=== PATIENT | female | born 1980 | race Caucasian/White ===

== ENCOUNTER 2018-10-12 04:46 | Emergency (ER) | payer BC ==
[~2018-10-12] VITALS: Ht 167.6 cm; Wt 125.0 kg
[2018-10-12 07:40] LABS: BASO % 0.4 % (0.0-1.0); EOS # 0.3 10^3/uL (0.0-0.50); EOS % 3.5 % (0.0-3.0); HEMATOCRIT 41.7 % (36.0-47.0); HEMOGLOBIN 14.1 g/dl (12.0-15.5); LYMPH # 1.6 10^3/uL (1.5-4.5); LYMPH % 22.8 % (24.0-44.0); MEAN CORPUSCULAR HGB CONC 33.8 g/dl (32.0-36.5); MEAN CORPUSCULAR VOLUME 85.8 fl (80.0-96.0); MONO # 0.4 10^3/uL (0.0-0.8); NEUTROPHILS # 4.8 10^3/uL (1.8-7.7); NEUTROPHILS % 67.6 % (36.0-66.0); PLATELET COUNT, AUTOMATED 262 10^3/uL (150-450); RED BLOOD COUNT 4.86 10^6/uL (4.00-5.40); WHITE BLOOD COUNT 7.2 10^3/uL (4.0-10.0)
[2018-10-12 10:18] LABS: CHLAMYDIA DNA AMPLIFICATION NEGATIVE (NEGATIVE); GC DNA AMPLIFICATION NEGATIVE (NEGATIVE)
--- NOTE | 2018-10-12 10:25 | REP ---
REASON FOR INTERPRETATION OF THE EXAM: Sent to [employer], no response. EXAM DATE: 10/12/2018 at 7:46 a.m. REASON FOR EXAM: Vaginal spotting. Transvesical and transvaginal imaging was obtained. The uterus measures 8.3 x 5.9 x 6.4 cm. Within the uterus, there is an anechoic structure with increase echoes surrounding it consistent with a decidual reaction. The mean diameter is equal to a 6 week 2 day gestational age. There is no echogenic material seen within the gestational sac that would be considered consistent with a pole. There is a yolk sac present. Doppler shows no evidence of cardiac activity. Right ovary measures 4.8 x 2.3 x 2.5 cm and is within normal limits. Left ovary measures 3.3 x 1.6 x 2.2 cm and is within normal limits. IMPRESSION: Early OB ultrasound as described above. Followup is recommended. Electronically Signed by Roberto Trinh DO 10/12/2018 01:51 P
[2018-10-12 11:08] VITALS: BP 159/96
== END 2018-10-12 11:24 | disposition home or self-care (01) ==
LOC: M ED 04:46
DX: O20.0 Threatened abortion (principal); Z3A.01 Less than 8 weeks gestation of pregnancy

== ENCOUNTER → 2018-11-03 | Outpatient (CLI) | payer BC ==
[2018-11-03 12:05] LABS: BASO % 0.3 % (0.0-1.0); EOS # 0.2 10^3/uL (0.0-0.50); EOS % 1.8 % (0.0-3.0); HEMATOCRIT 43.1 % (36.0-47.0); HEMOGLOBIN 14.7 g/dl (12.0-15.5); LYMPH # 1.8 10^3/uL (1.5-4.5); LYMPH % 17.4 % (24.0-44.0); MEAN CORPUSCULAR HEMOGLOBIN 29.2 pg (27.0-33.0); MEAN CORPUSCULAR HGB CONC 34.1 g/dl (32.0-36.5); MEAN CORPUSCULAR VOLUME 85.5 fl (80.0-96.0); MONO # 0.6 10^3/uL (0.0-0.8); MONO % 6.1 % (0.0-5.0); NEUTROPHILS # 7.7 10^3/uL (1.8-7.7); NEUTROPHILS % 73.9 % (36.0-66.0); PLATELET COUNT, AUTOMATED 281 10^3/uL (150-450); RED BLOOD COUNT 5.04 10^6/uL (4.00-5.40); WHITE BLOOD COUNT 10.4 10^3/uL (4.0-10.0)
[2018-11-03 12:24] LABS: CREATININE,RANDOM URINE 93.4 MG/DL; TOTAL PROTEIN,RANDOM URINE 32.1 MG/DL (0.0-12.0)
[2018-11-03 12:29] LABS: ALT/SGPT 22 U/L (12-78); BILIRUBIN,TOTAL 0.2 MG/DL (0.2-1.0); CREATININE FOR GFR 0.56 MG/DL (0.55-1.30); GLOMERULAR FILTRATION RATE > 60.0 (>60); LDH LACTATE DEHYDROGENASE 171 U/L (84-246); URIC ACID 4.3 MG/DL (2.6-6.0)
[2018-11-03 12:43] LABS: RUBELLA IgG QUALITATIVE IMMUNE (IMMUNE)
[2018-11-03 13:12] LABS: HIV 1&2 SCREEN CENTAUR NEGATIVE (NEGATIVE)
[2018-11-03 13:20] LABS: CHLAMYDIA DNA AMPLIFICATION NEGATIVE (NEGATIVE); GC DNA AMPLIFICATION NEGATIVE (NEGATIVE)
== END ==
LOC: M LAB 10:24
PROVIDERS: ATTEND Obstetrics & Gynecology
DX: O99.211 Obesity complicating pregnancy, first trimester (principal); O16.1 Unspecified maternal hypertension, first trimester; Z3A.00 Weeks of gestation of pregnancy not specified

== ENCOUNTER → 2018-11-03 | Outpatient (CLI) | payer BC | LOC: M SMT 12:00 | PROVIDERS: ATTEND Advanced Practice Midwife | DX: O20.0 Threatened abortion (principal); Z3A.00 Weeks of gestation of pregnancy not specified ==

== ENCOUNTER → 2018-11-04 | Outpatient (CLI) | payer BC | LOC: M LAB 13:24 | PROVIDERS: ATTEND Advanced Practice Midwife | DX: O20.0 Threatened abortion (principal) ==

== ENCOUNTER → 2018-11-12 | Outpatient (CLI) | payer BC | LOC: M LAB 09:17 | PROVIDERS: ATTEND Obstetrics & Gynecology | DX: O03.9 Complete or unspecified spontaneous abortion without complication (principal); Z3A.00 Weeks of gestation of pregnancy not specified ==

== ENCOUNTER → 2019-05-13 | Outpatient (REF) | payer BC ==
[2019-05-13 17:42] LABS: HEMATOCRIT 42.4 % (36.0-47.0); HEMOGLOBIN 13.8 g/dl (12.0-15.5); MEAN CORPUSCULAR HEMOGLOBIN 28.7 pg (27.0-33.0); MEAN CORPUSCULAR HGB CONC 32.5 g/dl (32.0-36.5); MEAN CORPUSCULAR VOLUME 88.1 fl (80.0-96.0); PLATELET COUNT, AUTOMATED 303 10^3/uL (150-450); RED BLOOD COUNT 4.81 10^6/uL (4.00-5.40); WHITE BLOOD COUNT 9.5 10^3/uL (4.0-10.0)
[2019-05-13 18:31] LABS: HCG, SERUM QUANTITATIVE 1010 MIU/ML; RUBELLA IgG QUALITATIVE IMMUNE (IMMUNE)
[2019-05-13 18:39] LABS: HEMOGLOBIN A1c 6.4 %
[2019-05-13 18:42] LABS: HIV 1&2 SCREEN CENTAUR NEGATIVE (NEGATIVE)
[2019-05-15 13:07] LABS: HEPATITIS C VIRUS ABY INDEX 0.1 INDEX (<0.8)
== END ==
LOC: M LAB REF 16:44
PROVIDERS: ATTEND Nurse Practitioner Women's Health
DX: O36.80X0 Pregnancy with inconclusive fetal viability, not applicable or unspecified (principal)

== ENCOUNTER → 2019-05-18 | Outpatient (CLI) | payer BC | LOC: M LAB 07:34 | PROVIDERS: ATTEND Nurse Practitioner Women's Health | DX: O99.810 Abnormal glucose complicating pregnancy (principal) ==

== ENCOUNTER → 2019-08-26 | Outpatient (REF) | payer BC ==
[2019-08-26 16:56] LABS: FREE T3 2.5 PG/ML (2.2-4.0); FREE T4 0.92 NG/DL (0.76-1.46); THYROID STIMULATING HORMONE 3.91 uIU/ML (0.358-3.740)
== END ==
LOC: M LAB REF 16:17
PROVIDERS: ATTEND Obstetrics & Gynecology
DX: Z34.82 Encounter for supervision of other normal pregnancy, second trimester (principal)

== ENCOUNTER → 2019-09-30 | Outpatient (CLI) | payer BC ==
[2019-09-30 15:25] LABS: HEMATOCRIT 39.4 % (36.0-47.0); HEMOGLOBIN 13.5 g/dl (12.0-15.5); MEAN CORPUSCULAR HEMOGLOBIN 29.6 pg (27.0-33.0); MEAN CORPUSCULAR HGB CONC 34.3 g/dl (32.0-36.5); MEAN CORPUSCULAR VOLUME 86.4 fl (80.0-96.0); PLATELET COUNT, AUTOMATED 249 10^3/uL (150-450); RED BLOOD COUNT 4.56 10^6/uL (4.00-5.40); WHITE BLOOD COUNT 9.7 10^3/uL (4.0-10.0)
[2019-09-30 15:49] LABS: CREATININE, URINE 65.6 MG/DL
[2019-09-30 15:56] LABS: ALBUMIN 3.1 GM/DL (3.2-5.2); ALT/SGPT 13 U/L (12-78); BILIRUBIN,TOTAL 0.3 MG/DL (0.2-1.0); BLOOD UREA NITROGEN 7 MG/DL (7-18); CALCIUM LEVEL 8.8 MG/DL (8.5-10.1); CARBON DIOXIDE LEVEL 24 MEQ/L (21-32); CHLORIDE LEVEL 106 MEQ/L (98-107); GLOMERULAR FILTRATION RATE > 60.0 (>60); POTASSIUM SERUM 4.1 MEQ/L (3.5-5.1); SODIUM LEVEL 136 MEQ/L (136-145)
[2019-10-01 07:04] LABS: GLUCOSE, FASTING 68 MG/DL (70-100)
== END ==
LOC: M LAB 14:40
PROVIDERS: ATTEND Obstetrics & Gynecology
DX: Z34.81 Encounter for supervision of other normal pregnancy, first trimester (principal); Z3A.00 Weeks of gestation of pregnancy not specified

== ENCOUNTER → 2019-12-18 | Outpatient (CLI) | payer BC ==
[~2019-12-18] MED LIST: EUTH50TA PO; GLYB5TA PO; IBUP80TA PO; PERCOCET PO; PRENTAB55 PO
--- NOTE | 2019-12-18 11:52 | REP ---
OB ULTRASOUND: Real-time sonographic evaluation of gravid uterus performed. There is a single living intrauterine gestation. The estimated gestational age is reportedly 36 weeks 4 days, EDC 01/11/2020. Cervix is closed and measures 4 cm in length. heart rate 158 beats per minute. Amniotic fluid appears within normal limits. TASHIA is 10.1, normal range 8-18. position breech. Placenta is fundal and grade 2 with no previa or abruption.
== END ==
LOC: M WHC 07:19
PROVIDERS: ATTEND Advanced Practice Midwife
DX: O32.1XX0 Maternal care for breech presentation, not applicable or unspecified (principal); Z3A.36 36 weeks gestation of pregnancy

== ENCOUNTER → 2019-12-22 | Outpatient (REF) | payer BC | LOC: M LAB REF 16:12 | PROVIDERS: ATTEND Obstetrics & Gynecology | DX: Z34.83 Encounter for supervision of other normal pregnancy, third trimester (principal) ==

== ENCOUNTER → 2019-12-28 | Outpatient (CLI) | payer BC | LOC: M LABSMTC 10:44 | PROVIDERS: ATTEND Anesthesiology | DX: Z01.818 Encounter for other preprocedural examination (principal); Z11.59 Encounter for screening for other viral diseases | CPT/HCPCS: C9803; U0003 ==

== ENCOUNTER → 2019-12-30 | Outpatient (CLI) | payer BC ==
--- NOTE | 2019-12-31 06:11 | REP ---
REASON FOR EXAM: Followup. Multiple ultrasonographic images of the gravid uterus show a single living intrauterine gestation in the breech presentation. Doppler interrogation of the heart shows a heart rate of 130 beats per minute. The placenta is posterior and not low lying. The cervix measures 3.5 cm in length and is closed. The subjective amniotic fluid volume is within normal limits. The calculated amniotic fluid index is 10.4 with an expected range 7.3 to 23.5. No further imaging was requested or performed. IMPRESSION: Limited OB ultrasound exam, as described above.
== END ==
LOC: M WHC 15:14
PROVIDERS: ATTEND Obstetrics & Gynecology
DX: O32.1XX0 Maternal care for breech presentation, not applicable or unspecified (principal); Z3A.00 Weeks of gestation of pregnancy not specified

== ENCOUNTER 2019-12-31 05:08 | Inpatient (IN) | payer BC ==
[~2019-12-31] VITALS: Ht 167.6 cm; Wt 250.0 kg
[2019-12-31] VITALS (11 sets, daily range): BP systolic 120–153; BP diastolic 58–87
[~2019-12-31 05:08] MED LIST changes: -IBUP80TA PO; -PERCOCET PO
[2019-12-31] MEDS ORDERED: LACTATED RINGER'S 1000 ML IV STA (05:40)
[2019-12-31] MEDS ORDERED: LR 1,000 ML IV SCH ×2 (05:40→09:00)
[2019-12-31] MEDS ORDERED: ceFAZolin SOD 2 GM in IV 1 EA IV ONE (05:45)
[2019-12-31] MEDS ORDERED: BICITRA 30ML SOLN UDC PO ONE (05:45)
[2019-12-31 06:33] LABS: HEMATOCRIT 42.6 % (36.0-47.0); HEMOGLOBIN 14.2 g/dl (12.0-15.5); MEAN CORPUSCULAR HEMOGLOBIN 28.9 pg (27.0-33.0); MEAN CORPUSCULAR HGB CONC 33.3 g/dl (32.0-36.5); MEAN CORPUSCULAR VOLUME 86.8 fl (80.0-96.0); PLATELET COUNT, AUTOMATED 224 10^3/uL (150-450); RED BLOOD COUNT 4.91 10^6/uL (4.00-5.40); WHITE BLOOD COUNT 9.2 10^3/uL (4.0-10.0)
[2019-12-31 06:49] LABS: BLOOD UREA NITROGEN 12 MG/DL (7-18); CALCIUM LEVEL 8.4 MG/DL (8.5-10.1); CARBON DIOXIDE LEVEL 20 MEQ/L (21-32); CHLORIDE LEVEL 111 MEQ/L (98-107); CREATININE FOR GFR 0.52 MG/DL (0.55-1.30); GLOMERULAR FILTRATION RATE > 60.0 (>60); GLUCOSE, FASTING 90 MG/DL (70-100); SODIUM LEVEL 139 MEQ/L (136-145)
[2019-12-31] MEDS ORDERED: MORPHINE PRES-FREE INJ 10 MG/10 ML VIAL (J2274) As Ordered ONE (07:02)
[2019-12-31] MEDS ORDERED: OXYTOCIN 30 UNITS IN 0.9% NaCl 500ML IV BAG (J2590) As Ordered ONE ×2 (07:03→13:53)
[2019-12-31] MEDS ORDERED: OXYTOCIN INJ 10 UNITS/ML VIAL (J2590) As Ordered ONE (07:03)
[2019-12-31] MEDS ORDERED: PHENYLephrine HCL 500 MCG/5 ML (100MCG/ML) SYRINGE (J2370) As Ordered ONE (07:04)
[2019-12-31] MEDS ORDERED: KETOROLAC 60MG 2ML VIAL As Ordered ONE (07:04)
[2019-12-31] MEDS ORDERED: dexameTHASONE 4 MG/ML 1ML VIAL (J1100 PER 1MG) As Ordered ONE (07:04)
[2019-12-31] MEDS ORDERED: ePHEDrine SULFATE 25 MG/5 ML(5MG/ML) SYRINGE As Ordered ONE (07:04)
[2019-12-31] MEDS ORDERED: ONDANSETRON 4MG/2ML VIAL As Ordered ONE ×2 (07:04→10:16)
[2019-12-31] MEDS: glyBURIDE 2.5 MG TAB PO SCH ×2 (07:30→17:26)
[2019-12-31] MEDS ORDERED: OXYTOCIN DRIP 30 UNITS in IV 1 EA IV SCH (07:47)
[2019-12-31] MEDS ORDERED: NALOXONE INJ 0.4MG/1ML VIAL (J2310 PER 1MG) IV PRN ×2 (07:48)
[2019-12-31] MEDS ORDERED: NALBUPHINE HCL 10 MG/ML AMP (J2300) IV PRN (07:48)
[2019-12-31] MEDS ORDERED: METOCLOPRAMIDE INJ 10MG/2ML VIAL (J2765 PER 1) IV PRN (07:48)
[2019-12-31] MEDS ORDERED: diphenhydrAMINE 50MG/ML VIAL (J1200) IV PRN (07:48)
[2019-12-31] MEDS ORDERED: ONDANSETRON 4MG/2ML VIAL IV PRN ×2 (07:48→09:00)
[2019-12-31] MEDS ORDERED: MOM 30ML SUSPENSION UDC PO PRN (08:00)
[2019-12-31] MEDS ORDERED: RHOGAM 300 MCG (1500 IU) INJ (J2790) IM SCH (08:00)
[2019-12-31] MEDS ORDERED: MEASLES,MUMPS,RUBELLA VACCINE INJ (MMR-II) (90707) SC SCH (08:00)
[2019-12-31] MEDS ORDERED: PERCOCET 5MG/325MG TAB PO PRN ×2 (08:00→09:00)
[2019-12-31 08:24] LABS: CORD GAS ABE A -0.4; CORD GAS HCO3 A 29.3 MEQ/L; CORD GAS O2 SAT A 24.6 %; CORD GAS PCO2 A 70.7 mmHg; CORD GAS PH A 7.235 UNITS; CORD GAS PO2 A 14.4 mmHg; CORD GAS SBC A 22.3 MEQ/L; CORD GAS TCO2 A 31.4 MEQ/L
[2019-12-31 08:26] LABS: CORD GAS ABE V -4.1; CORD GAS O2 SAT V 64.9 %; CORD GAS PCO2 V 49.6 mmHg; CORD GAS PH V 7.284 UNITS; CORD GAS PO2 V 27.5 mmHg; CORD GAS SBC V 20.3 MEQ/L; CORD GAS TCO2 V 24.5 MEQ/L
[2019-12-31] MEDS: PRENATAL VITAMINS CHEWABLE TABLET PO SCH (09:00)
[2019-12-31] MEDS: DOCUSATE SODIUM 100 MG CAP PO SCH ×2 (09:00→20:25)
[2019-12-31] MEDS ORDERED: fentaNYL 100 MCG/2 ML INJECTION (J3010) IV PRN (09:00)
[2019-12-31] MEDS ORDERED: KETOROLAC 30 MG/ML 1ML VIAL IV SCH (13:00)
[2019-12-31] MEDS: KETOROLAC 30 MG/ML 1ML VIAL IV SCH ×2 (15:32→20:25)
[2020-01-01 02:00] VITALS: BP 130/62
[2020-01-01] MEDS: KETOROLAC 30 MG/ML 1ML VIAL IV SCH (03:07)
[2020-01-01 05:14] VITALS: BP 132/63
[2020-01-01] MEDS: glyBURIDE 2.5 MG TAB PO SCH ×2 (07:45→17:06)
[2020-01-01] MEDS: PRENATAL VITAMINS CHEWABLE TABLET PO SCH (07:46)
[2020-01-01] MEDS: DOCUSATE SODIUM 100 MG CAP PO SCH ×2 (07:46→19:31)
[2020-01-01] MEDS ORDERED: PERCOCET PO (07:47)
[2020-01-01] MEDS ORDERED: IBUP80TA PO (07:47)
[2020-01-01 09:01] LABS: HEMATOCRIT 37.3 % (36.0-47.0); HEMOGLOBIN 12.4 g/dl (12.0-15.5); MEAN CORPUSCULAR HEMOGLOBIN 29.5 pg (27.0-33.0); MEAN CORPUSCULAR HGB CONC 33.2 g/dl (32.0-36.5); MEAN CORPUSCULAR VOLUME 88.6 fl (80.0-96.0); PLATELET COUNT, AUTOMATED 206 10^3/uL (150-450); RED BLOOD COUNT 4.21 10^6/uL (4.00-5.40); WHITE BLOOD COUNT 11.6 10^3/uL (4.0-10.0)
[2020-01-01 10:00] VITALS: BP 123/59
[2020-01-01] MEDS: IBUPROFEN 800 MG TAB PO SCH ×2 (11:17→18:29)
[2020-01-01 14:00] VITALS: BP 138/67
[2020-01-01 18:00] VITALS: BP 142/76
[2020-01-01] MEDS ORDERED: IBUPROFEN 800 MG TAB PO SCH (21:00)
[2020-01-01 22:00] VITALS: BP 121/59
[2020-01-02 02:00] VITALS: BP 136/82
[2020-01-02] MEDS: IBUPROFEN 800 MG TAB PO SCH ×2 (03:08→10:22)
[2020-01-02 06:00] VITALS: BP 140/66
[2020-01-02] MEDS: glyBURIDE 2.5 MG TAB PO SCH (07:34)
--- NOTE | 2020-01-02 08:23 | DS.PDOC ---
Discharge Summary General Date of Admission Dec 31, 2019 at 05:08 Date of Discharge January 02, 2020 Discharge Summary PROCEDURES PERFORMED DURING STAY: Primary section. ADMITTING DIAGNOSES: 1. Breech presentation at term 2. Gestational diabetes. 3. AMA DISCHARGE DIAGNOSES: 1. Primary section. COMPLICATIONS/CHIEF COMPLAINT: Breech. HISTORY OF PRESENT ILLNESS: 39yo G2 now P1011. Patient of [facility]. Admitted for primary section at term. HOSPITAL COURSE: Ambulating. Tolerating regular diet. Adequate pain management. Voiding and passing flatus. DISCHARGE MEDICATIONS: Please see below. ALLERGIES: Please see below. PHYSICAL EXAMINATION ON DISCHARGE: VITAL SIGNS: Please see below. GENERAL: No distress HEENT: WNL NECK: SUpple CARDIOVASCULAR EXAMINATION: HRR, normotensive RESPIRATORY EXAMINATION: Clear and unlabored ABDOMINAL EXAMINATION: Bulky dressing removed. Optifoam replaced by nursing as it was lifting during dressing removal. No drainage noted. EXTREMITIES: Equal strength and motion SKIN: Intact NEUROLOGICAL EXAMINATION: Grossly intact PSYCHIATRIC EXAMINATION: Appropriate LABORATORY DATA: Please see below. PROGNOSIS: Good ACTIVITY: As tolerated. Pelvic rest DIET: As tolerated DISCHARGE PLAN: Home today. DISPOSITION: Home with family. DISCHARGE INSTRUCTIONS: 1. Routine precautions. Pelvic rest. Oral medications as ordered. Call office with fever, nausea,vomiting, chills, foul lochia or wound exudate. RTO 2 wks and 6 wks. DISCHARGE CONDITION: Stable. TIME SPENT ON DISCHARGE: Greater than 10 minutes. Vital Signs/I&Os Vital Signs Date Time Temp Pulse Resp B/P (MAP) Pulse Ox O2 Delivery O2 Flow Rate FiO2 01/02/20 06:00 98.4 63 18 140/66 (90) 01/01/20 22:00 98 Room Air I&O- Last 24 Hours up to 6 AM 01/02/20 06:00 Output Total 850 ml Balance -850 ml Laboratory Data Labs 24H Laboratory Tests 2 01/01/20 08:37: Nucleated Red Blood Cells % (auto) 0.0 CBC/BMP Laboratory Tests 01/01/20 08:37 Discharge Medications Scheduled Glyburide (Glyburide) 5 Mg Tablet, 5 MG PO BID, (Reported) Levothyroxine Sodium (Euthyrox) 50 Mcg Tablet, 50 MCG PO DAILY, (Reported) Uvm931/Iron Fum/Folic/Docusate ( 19 Tablet) 1 Each Tablet, 1 TAB PO DAILY, (Reported) Scheduled PRN Ibuprofen (Ibuprofen) 800 Mg Tablet, 800 MG PO Q8H PRN for ABDOMINAL PAIN Oxycodone/Acetaminophen (Oxycodone-Acetaminophen 5-325) 1 Each Tablet, 1 TAB PO Q4H PRN for MILD/MODERATE PAIN (PS 1-7) Allergies Coded Allergies: No Known Allergies (Unverified , 10/12/18) Chantal Ambriz CNM Jan 02, 2020 08:23
[2020-01-02] MEDS: DOCUSATE SODIUM 100 MG CAP PO SCH (09:18)
[2020-01-02] MEDS: PRENATAL VITAMINS CHEWABLE TABLET PO SCH (09:19)
--- NOTE | 2020-01-07 14:38 | RO ---
DATE OF PROCEDURE: 12/31/2019 Brittaney is a 39-year-old female, 2, para 0-0-1-0, who is admitted at 39+ weeks gestation with breech presentation for an elective primary section. The patient does have a history of gestational diabetes on glyburide and morbid obesity. PREOPERATIVE DIAGNOSES: 1. Term . 2. Breech presentation. 3. Gestational diabetes on glyburide. 4. Obesity. POSTOPERATIVE DIAGNOSES: 1. Term . 2. Breech presentation. 3. Gestational diabetes on glyburide. 4. Obesity. 5. Kali breech. PROCEDURE: 1. Primary low transverse section. 2. Breech extraction. ANESTHESIA: Spinal. SURGEON: Dr. Curry MIX MAKER: Dr. Jameson COMPLICATIONS: None. ESTIMATED BLOOD LOSS: 600 mL. FINDINGS: Live infant in kali breech presentation. 9, 10. weight 7 pounds 7 ounces. Normal tubes and ovaries. DESCRIPTION OF PROCEDURE: After obtaining informed consent, the patient was taken to the operating room where spinal anesthetic was found to be adequate. She was then draped and prepped in usual sterile fashion in the supine position. At this point, after testing the anesthetic, she was then draped and prepped in usual sterile fashion and a Pfannenstiel incision was made. This was carried down to the fascia. Fascia was incised in the midline fashion and carried through laterally. With the help of my sales assistants and salespersons the perineal cavity was entered bluntly. A Mobius skin retractor was placed. A low transverse uterine incision was made. was delivered in atraumatic fashion. Nose and mouth bulb suctioned. Cord doubly clamped and cut, and infant was handed over to the waiting warmer. Cord blood and cord gas was sent. Placenta removed manually. Uterus cleared of all clot and debris, and the uterine incision was then repaired in two separate layers of #0 Vicryl sutures. Pelvis copiously irrigated with normal saline and suctioned out. Attention turned to the peritoneum, which was closed in a running fashion using #2-0 Vicryl. Fascia closed in two separate segment of #0 Vicryl sutures. All superficial bleeders were coagulated. The skin was reapproximated in a subcuticular fashion using #3-0 Vicryl on a Jack. Sterile dressing placed. Patient tolerated procedure well. She was then transferred to recovery room in stable condition.
== END 2020-01-02 14:50 | disposition home or self-care (01) | DRG 540 ==
LOC: M LDI 05:08 → M OBS 10:43
PROVIDERS: ADMIT Obstetrics & Gynecology; ATTEND Obstetrics & Gynecology
PROC: 10D00Z1 Extraction of Products of Conception, Low, Open Approach (ICD-10-PCS; principal; 2019-12-31 07:30)
DX: O32.1XX0 Maternal care for breech presentation, not applicable or unspecified (principal); O24.425 Gestational diabetes mellitus in childbirth, controlled by oral hypoglycemic drugs; Z3A.38 38 weeks gestation of pregnancy; Z37.0 Single live birth; O99.214 Obesity complicating childbirth; E66.9 Obesity, unspecified

== ENCOUNTER → 2020-02-11 | Outpatient (CLI) | payer BC ==
[~2020-02-11] MED LIST changes: +IBUP80TA PO; +PERCOCET PO
== END ==
LOC: M LAB 09:29
PROVIDERS: ATTEND Obstetrics & Gynecology
DX: O24.435 Gestational diabetes mellitus in puerperium, controlled by oral hypoglycemic drugs (principal)

== ENCOUNTER → 2020-06-14 | Outpatient (REF) | payer BC ==
[2020-06-14 13:06] LABS: HEMATOCRIT 44.7 % (36.0-47.0); HEMOGLOBIN 14.5 g/dl (12.0-15.5); MEAN CORPUSCULAR HEMOGLOBIN 28.3 pg (27.0-33.0); MEAN CORPUSCULAR HGB CONC 32.4 g/dl (32.0-36.5); MEAN CORPUSCULAR VOLUME 87.3 fl (80.0-96.0); PLATELET COUNT, AUTOMATED 278 10^3/uL (150-450); RED BLOOD COUNT 5.12 10^6/uL (4.00-5.40); WHITE BLOOD COUNT 6.9 10^3/uL (4.0-10.0)
[2020-06-14 13:42] LABS: FREE T3 2.4 PG/ML (2.2-4.0); FREE T4 0.91 NG/DL (0.76-1.46); HCG, SERUM QUANTITATIVE 546 MIU/ML
[2020-06-14 14:22] LABS: HEPATITIS C VIRUS ABY INDEX 0.3 INDEX (<0.8); HIV 1&2 SCREEN CENTAUR NEGATIVE (NEGATIVE)
[2020-06-14 15:39] LABS: HEMOGLOBIN A1c 6.3 %
== END ==
LOC: M LAB REF 12:32
PROVIDERS: ATTEND Obstetrics & Gynecology
DX: Z32.01 Encounter for pregnancy test, result positive (principal); O36.80X0 Pregnancy with inconclusive fetal viability, not applicable or unspecified; Z3A.00 Weeks of gestation of pregnancy not specified

== ENCOUNTER → 2020-06-29 | Outpatient (CLI) | payer BC ==
--- NOTE | 2020-06-29 15:41 | REP ---
INDICATION: DATING/VIABILITY COMPARISON: None. TECHNIQUE: Transabdominal and transvaginal 1st trimester obstetrical ultrasound with color Doppler evaluation. FINDINGS: Single live early intrauterine is appreciated. Gestational sac with yolk sac and pole identified. Titanic-rump length of 6 mm corresponds to 6 weeks 3 days gestational age with estimated date of delivery 02/19/2021. heart rate equals 110 beats per minute. No gross abnormalities are identified. Complex cyst in the left ovary measuring 4.3 x 3.6 x 3.3 cm likely corpus luteum. Complex lesion in the right ovary measuring 1.6 x 1.3 x 1.7 cm is nonspecific and may represent resolving hemorrhagic physiologic cyst. No pelvic fluid or adnexal mass lesion. IMPRESSION: Single live early intrauterine at 6 weeks 3 days gestational age. Complete anatomical assessment should be performed and 19-20 weeks. <Electronically signed by Paulie Archer > 06/29/20 [id number]
== END ==
LOC: M WHC 13:48
PROVIDERS: ATTEND Obstetrics & Gynecology
DX: Z36.9 Encounter for antenatal screening, unspecified (principal); Z3A.01 Less than 8 weeks gestation of pregnancy

== ENCOUNTER → 2020-07-20 | Outpatient (CLI) | payer BC ==
[~2020-07-20] MED LIST changes: -GLYB5TA PO; +GLYB5TAB6 PO
[2020-07-20 15:48] LABS: FREE T4 1.08 NG/DL (0.76-1.46); THYROID STIMULATING HORMONE 0.683 uIU/ML (0.358-3.740)
== END ==
LOC: M LAB 14:07
PROVIDERS: ATTEND Internal Medicine Endocrinology, Diabetes & Metabolism
DX: E03.9 Hypothyroidism, unspecified (principal)

== ENCOUNTER → 2020-10-14 | Outpatient (CLI) | payer BC ==
--- NOTE | 2020-10-14 16:04 | REP ---
INDICATION: ANATOMY COMPARISON: 06/29/2020 TECHNIQUE: Transabdominal obstetrical ultrasound with color Doppler evaluation. FINDINGS: Examination demonstrates a single live intrauterine in transverse (head to maternal left) presentation. motion is identified by technologist. Placenta is noted posterior and grade 0 without evidence for placenta previa or abruption. Amniotic fluid volume is normal. Cervix measures 4.1 cm in length and appears closed.. Gestational age by LMP and 1st U/S 21 weeks 0 days with REBEKA 02/24/2021. Gestational age by current measurements 23 weeks 0 days with REBEKA 02/10/2021. FHR equals 142 beats per minute. BPD: 5.6 cm at 23 weeks 1 day HC: 20.7 cm at 22 weeks 6 days AC: 18.4 cm at 23 weeks 2 days FL: 4.0 cm at 22 weeks 6 days HL: 3.7 cm at 23 weeks 0 days HC/AC: 1.12 Estimated weight 557 grams (greater than 97thpercentile based on age by 1st ultrasound; 45th percentile based on age by current measurements). Anatomical assessment demonstrates normal structures including cranium, choroid plexus, cavum, cerebellum/posterior fossa, facial features, lungs, four-chamber heart/ventricular outflow tracts, diaphragm, stomach, cord insertion/three-vessel cord, kidneys/bladder, spine, and extremities. IMPRESSION: 1. Single live intrauterine in transverse lie demonstrating greater than expected interval growth and estimated weight based on 1st ultrasound. Correlation is recommended. 2. Anatomical assessment is complete and normal. <Electronically signed by Paulie Archer > 10/14/20 [id number]
== END ==
LOC: M WHC 14:34
PROVIDERS: ATTEND Obstetrics & Gynecology
DX: Z34.82 Encounter for supervision of other normal pregnancy, second trimester (principal); Z3A.21 21 weeks gestation of pregnancy

== ENCOUNTER → 2020-11-25 | Outpatient (CLI) | payer BC | LOC: M WHC 13:46 | PROVIDERS: ATTEND Obstetrics & Gynecology | DX: Z53.8 Procedure and treatment not carried out for other reasons (principal) ==

== ENCOUNTER → 2020-11-28 | Outpatient (REF) | payer BC ==
[2020-11-28 12:08] LABS: HEMATOCRIT 44.2 % (36.0-47.0); HEMOGLOBIN 14.6 g/dl (12.0-15.5); MEAN CORPUSCULAR HEMOGLOBIN 29.3 pg (27.0-33.0); MEAN CORPUSCULAR VOLUME 88.6 fl (80.0-96.0); PLATELET COUNT, AUTOMATED 233 10^3/uL (150-450); RED BLOOD COUNT 4.99 10^6/uL (4.00-5.40); WHITE BLOOD COUNT 9.6 10^3/uL (4.0-10.0)
[2020-11-28 12:48] LABS: FREE T3 2.3 PG/ML (2.2-4.0); FREE T4 0.94 NG/DL (0.76-1.46); THYROID STIMULATING HORMONE 1.15 uIU/ML (0.358-3.740)
== END ==
LOC: M LAB REF 11:12
PROVIDERS: ATTEND Advanced Practice Midwife
DX: Z34.83 Encounter for supervision of other normal pregnancy, third trimester (principal)

== ENCOUNTER → 2021-01-26 | Outpatient (REF) | payer BC ==
[~2021-01-26] MED LIST changes: +ASPI1CHW3 PO; +PRENTAB53 PO; +SYNT75TA PO
== END ==
LOC: M LAB REF 17:20
PROVIDERS: ATTEND Obstetrics & Gynecology
DX: Z36.89 Encounter for other specified antenatal screening (principal)

== ENCOUNTER → 2021-02-10 | Outpatient (CLI) | payer BC | LOC: M LABSMTC 10:02 | PROVIDERS: ATTEND Anesthesiology | DX: Z11.52 Encounter for screening for COVID-19 (principal) ==

== ENCOUNTER 2021-02-15 05:18 | Inpatient (IN) | payer BC ==
[~2021-02-15] VITALS: Ht 167.6 cm; Wt 133.5 kg
[2021-02-15] VITALS (7 sets, daily range): BP systolic 113–146; BP diastolic 58–81
[2021-02-15] MEDS ORDERED: BICITRA 30ML SOLN UDC PO ONE (05:50)
[2021-02-15] MEDS ORDERED: ceFAZolin SOD 2 GM in IV 1 EA IV ONE (05:50)
[2021-02-15] MEDS ORDERED: LACTATED RINGER'S 1000 ML IV STA (05:50)
[2021-02-15] MEDS ORDERED: LR 1,000 ML IV SCH (05:50)
[2021-02-15 06:35] LABS: HEMATOCRIT 41.6 % (36.0-47.0); MEAN CORPUSCULAR HEMOGLOBIN 29.4 pg (27.0-33.0); MEAN CORPUSCULAR HGB CONC 33.7 g/dl (32.0-36.5); MEAN CORPUSCULAR VOLUME 87.4 fl (80.0-96.0); PLATELET COUNT, AUTOMATED 210 10^3/uL (150-450); RED BLOOD COUNT 4.76 10^6/uL (4.00-5.40)
[2021-02-15] MEDS ORDERED: HOME MED LIST COMPLETE! XX SCH (06:35)
[2021-02-15] MEDS ORDERED: ONDANSETRON 4MG/2ML VIAL As Ordered ONE ×2 (07:21→10:10)
[2021-02-15] MEDS ORDERED: OXYTOCIN INJ 10 UNITS/ML VIAL (J2590) As Ordered ONE (07:21)
[2021-02-15] MEDS ORDERED: dexameTHASONE 4 MG/ML 1ML VIAL (J1100 PER 1MG) As Ordered ONE (07:21)
[2021-02-15] MEDS ORDERED: KETOROLAC 60MG 2ML VIAL As Ordered ONE (07:21)
[2021-02-15] MEDS ORDERED: fentaNYL 100 MCG/2 ML INJECTION (J3010) As Ordered ONE (07:23)
[2021-02-15] MEDS ORDERED: MORPHINE PRES-FREE INJ 10 MG/10 ML VIAL (J2274) As Ordered ONE (07:23)
[2021-02-15] MEDS ORDERED: SIMETHICONE 80MG CHEW TAB PO PRN (07:35)
[2021-02-15] MEDS ORDERED: MOM 30ML SUSPENSION UDC PO PRN (07:35)
[2021-02-15] MEDS ORDERED: RHOGAM 300 MCG (1500 IU) INJ (J2790) IM SCH (07:35)
[2021-02-15] MEDS ORDERED: MEASLES,MUMPS,RUBELLA VACCINE INJ (MMR-II) (90707) SC SCH (07:35)
[2021-02-15] MEDS ORDERED: OXYTOCIN DRIP 30 UNITS in IV 1 EA IV SCH (07:35)
[2021-02-15] MEDS ORDERED: NALOXONE INJ 0.4MG/1ML VIAL (J2310 PER 1MG) IV PRN ×2 (07:43)
[2021-02-15] MEDS ORDERED: ONDANSETRON 4MG/2ML VIAL IV PRN ×2 (07:43→09:30)
[2021-02-15] MEDS ORDERED: diphenhydrAMINE 50MG/ML VIAL (J1200) IV PRN (07:43)
[2021-02-15] MEDS ORDERED: NALBUPHINE HCL 10 MG/ML AMP (J2300) IV PRN (07:43)
[2021-02-15] MEDS ORDERED: METOCLOPRAMIDE INJ 10MG/2ML VIAL (J2765 PER 1) IV PRN (07:43)
[2021-02-15] MEDS ORDERED: PHENYLephrine 500MCG 5ML (100MCG/ML) SYRINGE As Ordered ONE (08:31)
[2021-02-15] MEDS ORDERED: ePHEDrine SULFATE 25 MG/5 ML(5MG/ML) SYRINGE As Ordered ONE (08:31)
[2021-02-15 08:36] LABS: CORD GAS ABE V -5.8; CORD GAS HCO3 V 22.3 MEQ/L; CORD GAS O2 SAT V 38.1 %; CORD GAS PCO2 V 53.7 mmHg; CORD GAS PH V 7.237 UNITS; CORD GAS PO2 V 18.5 mmHg; CORD GAS SBC V 18.4 MEQ/L
[2021-02-15 08:38] LABS: CORD GAS ABE A -8.4; CORD GAS HCO3 A 21.9 MEQ/L; CORD GAS O2 SAT A 54.1 %; CORD GAS PCO2 A 65.3 mmHg; CORD GAS PH A 7.144 UNITS; CORD GAS PO2 A 26.1 mmHg; CORD GAS SBC A 16.9 MEQ/L; CORD GAS TCO2 A 23.9 MEQ/L
[2021-02-15] MEDS: DOCUSATE SODIUM 100MG CAPSULE PO SCH ×2 (09:00→20:09)
[2021-02-15] MEDS: PRENATAL VITAMINS CHEWABLE TABLET PO SCH (09:00)
[2021-02-15] MEDS ORDERED: PERCOCET 5MG/325MG TAB PO PRN (09:30)
[2021-02-15] MEDS ORDERED: fentaNYL 100 MCG/2 ML INJECTION (J3010) IV PRN (09:30)
[2021-02-15] MEDS ORDERED: OXYTOCIN 30 UNITS IN 0.9% NaCl 500ML IV BAG (J2590) As Ordered ONE (10:17)
[2021-02-15] MEDS: KETOROLAC 30 MG/ML 1ML VIAL IV SCH ×2 (14:50→20:07)
[2021-02-15] MEDS ORDERED: PROMETHAZINE INJ 25 MG/ML VIAL (J2550) IV PRN (17:35)
[2021-02-16] VITALS (7 sets, daily range): BP systolic 119–144; BP diastolic 57–74
[2021-02-16] MEDS: KETOROLAC 30 MG/ML 1ML VIAL IV SCH (03:00)
[2021-02-16 08:31] LABS: HEMOGLOBIN 12.5 g/dl (12.0-15.5); MEAN CORPUSCULAR HEMOGLOBIN 29.5 pg (27.0-33.0); MEAN CORPUSCULAR HGB CONC 32.9 g/dl (32.0-36.5); MEAN CORPUSCULAR VOLUME 89.6 fl (80.0-96.0); PLATELET COUNT, AUTOMATED 181 10^3/uL (150-450); RED BLOOD COUNT 4.24 10^6/uL (4.00-5.40); WHITE BLOOD COUNT 9.6 10^3/uL (4.0-10.0)
[2021-02-16] MEDS: PRENATAL VITAMINS CHEWABLE TABLET PO SCH (09:07)
[2021-02-16] MEDS: DOCUSATE SODIUM 100MG CAPSULE PO SCH ×2 (09:07→22:21)
[2021-02-16] MEDS: IBUPROFEN 800 MG TAB PO SCH ×2 (11:05→18:16)
[2021-02-16] MEDS: PERCOCET 5MG/325MG TAB PO PRN (17:29)
[2021-02-17 02:00] VITALS: BP 151/74
[2021-02-17] MEDS: IBUPROFEN 800 MG TAB PO SCH ×2 (02:33→11:09)
[2021-02-17] MEDS: PERCOCET 5MG/325MG TAB PO PRN (02:34)
[2021-02-17 06:00] VITALS: BP 127/74
[2021-02-17] MEDS ORDERED: BOOSTRIX/ADACEL VACCINE (DIPHTH/PERTUSS/ACELL/TETANUS) 0.5ML SYR IM ONE (09:00)
[2021-02-17 09:51] VITALS: BP 130/74
[2021-02-17] MEDS ORDERED: PERCOCET PO (11:05)
[2021-02-17] MEDS ORDERED: IBUP80TA PO (11:05)
[2021-02-17] MEDS: DOCUSATE SODIUM 100MG CAPSULE PO SCH (11:08)
[2021-02-17] MEDS: PRENATAL VITAMINS CHEWABLE TABLET PO SCH (11:08)
[2021-05-29] MEDS ORDERED: METF500T13 PO (10:55)
[2021-07-03] MEDS ORDERED: IBUP80TA PO (15:36)
== END 2021-02-17 13:36 | disposition home or self-care (01) | DRG 540 ==
LOC: M LDI 05:18 → M OBS 10:48
PROVIDERS: ADMIT Obstetrics & Gynecology; ATTEND Obstetrics & Gynecology
PROC: 10D00Z1 Extraction of Products of Conception, Low, Open Approach (ICD-10-PCS; principal; 2021-02-15 07:30)
DX: O34.211 Maternal care for low transverse scar from previous cesarean delivery (principal); O24.12 Pre-existing type 2 diabetes mellitus, in childbirth; O99.214 Obesity complicating childbirth; E66.01 Morbid (severe) obesity due to excess calories; Z3A.39 39 weeks gestation of pregnancy; Z37.0 Single live birth; Z79.84 Long term (current) use of oral hypoglycemic drugs

== ENCOUNTER 2021-02-19 12:18 | Emergency (ER) | payer BC ==
[~2021-02-19] VITALS: Ht 167.6 cm; Wt 133.4 kg
[2021-02-19 14:23] VITALS: BP 148/77
== END 2021-02-19 14:46 | disposition home or self-care (01) ==
LOC: M ED 12:18
DX: Z48.89 Encounter for other specified surgical aftercare (principal); E03.9 Hypothyroidism, unspecified; Z79.899 Other long term (current) drug therapy; Z79.890 Hormone replacement therapy

== ENCOUNTER → 2021-03-27 | Outpatient (CLI) | payer BC | LOC: M LAB 07:10 | PROVIDERS: ATTEND Obstetrics & Gynecology | DX: Z36.89 Encounter for other specified antenatal screening (principal); O24.419 Gestational diabetes mellitus in pregnancy, unspecified control ==

== ENCOUNTER → 2021-04-12 | Outpatient (CLI) | payer BC ==
[~2021-04-12] MED LIST changes: +GASTROGRAFIN SOLUTION 30ML (Q9963) As Ordered ONE; +ISOVUE-370 76% 100ML VIAL As Ordered ONE
--- NOTE | 2021-04-13 07:01 | REP ---
INDICATION: ABD SWELLING. COMPARISON: None TECHNIQUE: Axial contrast-enhanced images from the lung bases to the pubic symphysis using oral and 100 cc Isovue 370 intravenous contrast material. Precontrast images of the abdomen along with coronal and sagittal reformations obtained. This CT examination was performed using the following dose reduction techniques: Automated exposure control, adjustment of mA and/or kv according to the patient's size, and the use of iterative reconstruction technique. FINDINGS: Patient appears to be status post midline surgical procedure and there is a large hyperdense fluid collection in the subcutaneous tissue measuring 24.4 x 16.8 x 20.0 cm consistent with hematoma/seroma. No associated gas is identified to suggest abscess. Liver, spleen, pancreas, gallbladder, bilateral adrenal glands and kidneys are normal. The enteric system including stomach, small, and large bowel appears normal. No evidence for obstruction or acute inflammatory process. Normal terminal ileum and appendix are identified in the right lower quadrant. Scattered diverticula noted without acute diverticulitis Pelvis demonstrates normal bladder and age-appropriate uterus/adnexa No ascites. No free air. No intraperitoneal or retroperitoneal adenopathy. Abdominal aorta and vasculature appear normal. Musculoskeletal structures demonstrate chronic L5 spondylolysis without spondylolisthesis. IMPRESSION: Large hyperdense fluid collection in the subcutaneous tissue midline suggesting hematoma/seroma. No further acute abdominopelvic pathology appreciated. <Electronically signed by Paulie Archer > 04/13/21 [id number]
== END ==
LOC: M RAD 13:31
PROVIDERS: ATTEND Registered Nurse
DX: R19.00 Intra-abdominal and pelvic swelling, mass and lump, unspecified site (principal)
CPT/HCPCS: 74178; Q9963; Q9967

== ENCOUNTER → 2021-05-26 | Outpatient (CLI) | payer BC ==
[~2021-05-26] MED LIST changes: -GASTROGRAFIN SOLUTION 30ML (Q9963) As Ordered ONE; -ISOVUE-370 76% 100ML VIAL As Ordered ONE; +METF500T13 PO
[2021-05-26 08:29] LABS: INR 0.87; PROTHROMBIN TIME 12.3 SECONDS (12.7-14.5)
[2021-05-26 08:30] LABS: PARTIAL THROMBOPLASTIN TIME 36.5 SECONDS (25.9-37.0)
== END ==
LOC: M LAB 07:30
PROVIDERS: ATTEND Physician Assistant
DX: K91.872 Postprocedural seroma of a digestive system organ or structure following a digestive system procedure (principal)

== ENCOUNTER → 2021-05-31 | Outpatient (CLI) | payer BC ==
[~2021-05-31] MED LIST changes: +LIDOCAINE 1% MDV 20ML VIAL As Ordered ONE
[2021-05-31 12:35] VITALS: BP 126/62
--- NOTE | 2021-05-31 19:43 | REP ---
INDICATION: POSTPROC SEROMA OF ABD The patient has a history of abdominal seroma COMPARISON: None. TECHNIQUE: The procedure was performed by SJ Gautam, under the direct supervision of Dr. Zhao The risks and benefits of the procedure were explained to the patient and an informed consent was obtained both verbally and written. Directly prior to the start of the procedure a formal time-out was completed in the procedure room. The pocket of fluid was localized in the umbilical region using ultrasound guidance. The skin was prepped and draped in a sterile fashion. Ten ML of 1% lidocaine 10 mg/ml was used as a local anesthetic. A 10 Vincentian skater catheter was inserted using trocar technique. FINDINGS: The pocket of fluid was localized in the lower umbilical region using ultrasound guidance. The skin was prepped and draped in sterile fashion. 10 mL of 1% lidocaine was used for local anesthetic. A 10 Vincentian skater catheter was inserted using trocar technique. 2980 mL of brown fluid were removed. The skater catheter was affixed to the skin using suture silk. A gravity feed drainage bag was attached to the catheter. The catheter insertion site was dressed in sterile fashion. The patient tolerated the procedure well and there were no immediate complications. After the appropriate amount of monitored convalescence, the patient was discharged from the department. IMPRESSION: Technically successful ultrasound-guided 10 Vincentian skater catheter placement. 2980 mL of brown fluid were removed. <Electronically signed by Scarlet Figueredo > 05/31/21 [id number] <Electronically signed by Kt Zhao > 05/31/21 [id number]
== END ==
LOC: M IRPRO 10:44
PROVIDERS: ATTEND Physician Assistant
DX: K91.872 Postprocedural seroma of a digestive system organ or structure following a digestive system procedure (principal)

== ENCOUNTER → 2021-06-21 | Outpatient (CLI) | payer BC ==
[~2021-06-21] MED LIST changes: -LIDOCAINE 1% MDV 20ML VIAL As Ordered ONE
[2021-06-21 13:10] LABS: BASO % 0.3 % (0.0-1.0); EOS % 0.2 % (0.0-3.0); HEMATOCRIT 35.1 % (36.0-47.0); HEMOGLOBIN 10.9 g/dl (12.0-15.5); LYMPH # 1.4 10^3/uL (1.5-5.0); LYMPH % 8.8 % (24.0-44.0); MEAN CORPUSCULAR HEMOGLOBIN 25.4 pg (27.0-33.0); MEAN CORPUSCULAR HGB CONC 31.1 g/dl (32.0-36.5); MEAN CORPUSCULAR VOLUME 81.8 fl (80.0-96.0); MONO % 6.4 % (2.0-8.0); NEUTROPHILS # 12.9 10^3/uL (1.5-8.5); NEUTROPHILS % 83.8 % (36.0-66.0); PLATELET COUNT, AUTOMATED 369 10^3/uL (150-450); RED BLOOD COUNT 4.29 10^6/uL (4.00-5.40); WHITE BLOOD COUNT 15.4 10^3/uL (4.0-10.0)
== END ==
LOC: M LAB 12:37
PROVIDERS: ATTEND Surgery
DX: O75.4 Other complications of obstetric surgery and procedures (principal); Z3A.00 Weeks of gestation of pregnancy not specified

== ENCOUNTER → 2021-06-26 | Outpatient (CLI) | payer BC | LOC: M LABSMTC 12:20 | PROVIDERS: ATTEND Anesthesiology | DX: Z01.812 Encounter for preprocedural laboratory examination (principal); Z20.822 Contact with and (suspected) exposure to COVID-19 ==

== ENCOUNTER 2021-08-02 19:33 | Emergency (ER) | payer BC ==
[~2021-08-02] VITALS: Ht 167.6 cm; Wt 138.1 kg
[2021-08-02 22:41] VITALS: BP 132/82
== END 2021-08-02 22:54 | disposition left against medical advice (07) ==
LOC: M ED 19:33
DX: Z53.29 Procedure and treatment not carried out because of patient's decision for other reasons (principal)

== ENCOUNTER → 2022-10-29 | Outpatient (CLI) | payer BC, OTHER ==
[~2022-10-29] MED LIST changes: +ASPI-655 PO; -ASPI1CHW3 PO
== END ==
LOC: M WHC 08:16
PROVIDERS: ATTEND Obstetrics & Gynecology
DX: Z12.31 Encounter for screening mammogram for malignant neoplasm of breast (principal)

== ENCOUNTER → 2023-12-02 | Outpatient (REF) | payer OTHER ==
[2023-12-04 07:21] LABS: LDL DIRECT 148 mg/dL (<100)
== END ==
LOC: M LAB REF 15:21
PROVIDERS: ATTEND Physician Assistant Medical
DX: E78.5 Hyperlipidemia, unspecified (principal)

== ENCOUNTER → 2023-12-23 | Outpatient (CLI) | payer OTHER | LOC: M RAD 16:44 | PROVIDERS: ATTEND Physician Assistant Medical | DX: M17.12 Unilateral primary osteoarthritis, left knee (principal) ==

== ENCOUNTER → 2023-12-30 | Outpatient (CLI) | payer OTHER | LOC: M WHC 08:51 | PROVIDERS: ATTEND Advanced Practice Midwife | DX: Z12.31 Encounter for screening mammogram for malignant neoplasm of breast (principal) ==